=== PATIENT | female | born 1950 | race Caucasian/White ===

== ENCOUNTER → 2017-09-03 | Outpatient (CLI) | payer MEDICARE, OTHER ==
[~2017-09-03] MED LIST: AMOX500C2 PO; OXYC-529 PO
--- NOTE | 2017-09-03 09:14 | Diagnostic Imaging Report ---
INDICATION: Pain. COMPARISON: None. FINDINGS: Two views of the left hip are obtained. No acute fracture or osseous destructive process is seen. There is mild hip joint space narrowing. Femoral head appears smooth and round. The sacroiliac joint appears unremarkable. IMPRESSION: Mild degenerative joint space narrowing of the left hip. No additional abnormality is seen. Dictated by: Dictated on workstation # [id number]
== END ==
LOC: RAD 08:06
PROVIDERS: ATTEND Nurse Practitioner Family
DX: M25.852 Other specified joint disorders, left hip (principal)
CPT/HCPCS: 73502

== ENCOUNTER → 2020-11-26 | Outpatient (CLI) | payer MEDICARE, OTHER ==
[~2020-11-26] MED LIST changes: +OXC5T PO; -OXYC-529 PO
--- NOTE | 2020-11-26 16:09 | Diagnostic Imaging Report ---
PROCEDURE: MRI left joint lower extremity without contrast. TECHNIQUE: Multiplanar, multisequence non contrast-enhanced MRI of the left lower extremity was accomplished. INDICATION: Left femur pain. COMPARISON: There are no prior MRI examinations available for comparison. The plain film examination of the left hip performed on 11/04/2016 failed to show any sign of an acute bony abnormality. FINDINGS: This study is less than optimal due to motion artifact. The T1 coronal series shows a poorly defined 1.4 x 3.4 cm area of diminished signal along the superior articular surface of the femoral head on the left. There is also abnormal signal in the subarticular region of the acetabulum in this region. I suspect that these findings are related to either degenerative disease alone or a combination of degenerative disease and avascular necrosis of the left femoral head. If there is a recent plain film exam, it would be helpful for comparison. There is no other abnormal signal arising from the osseous structures to indicate bone edema or fracture. There is a small joint effusion on the left. There is moderate degenerative disease of the right hip joint and the sacroiliac joints. There is a small area of altered signal along the inferior margin of the sacrum on the right. This is of uncertain etiology. This could be related to an area of sclerosis. It would be less likely that this is secondary to an acute bony injury or a neoplastic disease. A plain film examination of the pelvis would be recommended for further evaluation. There is no pelvic mass or free fluid collection identified. The urinary bladder is grossly unremarkable. The uterus does not appear to be enlarged. IMPRESSION: 1. There is a prominent area of abnormal signal involving the left femoral head, the opposing surfaces of the left acetabulum, and the left hip joint itself. These findings may be secondary to severe degenerative disease alone. The possibility that there is an element of avascular necrosis involving the femoral head should also be considered. 2. There is no acute bony abnormality appreciated otherwise. 3. The small area of altered signal in the right sacrum is of uncertain etiology. Considerations and recommendations as above. Dictated by: Dictated on workstation # [id number]
== END ==
LOC: RAD 14:25
DX: M25.552 Pain in left hip (principal)
CPT/HCPCS: 73721

== ENCOUNTER → 2020-11-29 | Outpatient (CLI) | payer MEDICARE, OTHER ==
--- NOTE | 2020-11-29 11:00 | Diagnostic Imaging Report ---
INDICATION: Left hip pain. Time of exam: 10:25 AM AP view of the pelvis as well as 2 views of each hip were obtained. Femoral acetabular alignment is normal bilaterally. There are severe osteoarthritic changes involving the left hip. There is complete loss of the superior joint space. There is sclerosis and subchondral cyst formation along the articular surfaces of the acetabulum and femoral head. There appears to be slight flattening of the femoral head. No fracture is seen. There is a lucency through the medial aspect of the left superior pubic ramus extending into the pubic body. Suggestive of a fracture. Right-sided rami are intact. IMPRESSION: 1. Severe osteoarthritic changes involving the left hip, as described. 2. Findings suggestive of a fracture involving the left pubic body and superior pubic ramus. Dictated by: Dictated on workstation # [id number]
== END ==
LOC: RAD 10:01
DX: M16.12 Unilateral primary osteoarthritis, left hip (principal)
CPT/HCPCS: 73523

== ENCOUNTER → 2021-07-17 | Outpatient (CLI) | payer MEDICARE, OTHER ==
--- NOTE | 2021-07-17 21:28 | Diagnostic Imaging Report ---
EXAMINATION: Magnetic resonance imaging of the pelvis and left hip without contrast DATE: July 17, 2021. COMPARISON: MRI November 26, 2020. Radiographs November 29, 2020. INDICATION: 71-year-old female, left hip pain. TECHNIQUE: Magnetic Resonance Imaging sequences were performed of the pelvis and left hip without contrast. TENDONS AND MUSCLES: The gluteus alfredito muscles and their origins and insertions are intact bilaterally. The tendons and muscles of the greater trochanter - gluteus minimus, piriformis and gluteus medius - are intact bilaterally. Both common hamstring attachments on the ischial tuberosities are intact and the extensor muscles of the thigh are intact. The visualized portions of the flexors and adductor muscles of the thigh and their attachments on the pelvis and hips are intact. Both iliopsoas and iliacus muscles are intact. The bilateral iliopsoas tendons are intact. HIPS AND SACROILIAC JOINTS: There is severe joint space loss of the left hip with [id number] articulation. There are prominent subchondral cysts in the femoral head and acetabulum. There is abnormal remodeling and a dysmorphic appearance of the left femoral head. There are prominent osteophytes arising from the femoral head. There is no large hip joint effusion. The right hip joint space appears well preserved. The sacroiliac joints are unremarkable. LUMBAR SPINE: The visible portions of the lumbar spine are unremarkable on limited assessment. BONE: The bones all have normal configuration. There is no acute fracture, bone contusion or evidence of osteonecrosis. BURSAE AND SOFT TISSUES: There is a left-sided Bartholin's gland cyst measuring approximately 1.4 cm in size. IMPRESSION: 1. End-stage arthritis of the left hip without large hip joint effusion. 2. Intact muscles and tendons. 3. No acute fracture, bone contusion or evidence of osteonecrosis. Dictated by: Dictated on workstation # [id number]
== END ==
LOC: RAD 13:15
DX: M16.12 Unilateral primary osteoarthritis, left hip (principal)
CPT/HCPCS: 73721

== ENCOUNTER 2023-08-03 22:41 | Emergency (ER) | payer MEDICARE, OTHER ==
[~2023-08-03] VITALS: Ht 165 cm; Wt 56.0 kg
[2023-08-03 22:48] VITALS: BP 191/96
[2023-08-03] MEDS ORDERED: HYDR-700 PO (23:26)
--- NOTE | 2023-08-03 23:26 | ED General ---
General Chief Complaint: Allergic Reaction Stated Complaint: [facility] Nursing Triage Note: PT C/O RASH THAT STARTED ON LOWER BACK AND REPORT IT'S GETTING WORSE/ PT WENT TO PCP AND GOT A STEROID, NO RELIEF YET. Source of Information: Patient Exam Limitations: No Limitations History of Present Illness Date Seen by Provider: Aug 03, 2023 Time Seen by Provider: 22:50 Initial Comments Here with rash to her back and arms that is itching significantly. Patient was prescribed Medrol Dosepak and started that today. She was told the itching would resolve after the first dosing but it has not and she is stating that it is really intense. She does have history of psoriasis. She does get infusions for that. She is due to get infusion and see her doctor tomorrow. Denies recent illness or bacterial infection. Denies change in soaps, lotions, creams, foods or other topical agents that would cause rash. She thought that she probably had hives. She does report allergy to Benadryl but can take hydroxyzine. She has the 50 mg dose at home but it makes her very drowsy. She has not taken anything for pain as acetaminophen also causes allergy. Timing/Duration: 3-4 Days Severity: Moderate Associated Systoms: No Fever/Chills, No Nausea/Vomiting Allergies and Home Medications Allergies Coded Allergies: acetaminophen (Verified Allergy, Unknown, 10/20/15) Patient Home Medication List Home Medication List Reviewed: Yes Amoxicillin (Amoxicillin) 500 Mg Capsule, 1 EACH PO QID Prescribed by: NADINE CESPEDES on 01/14/14 1212 Hydroxyzine HCl (Hydroxyzine HCl) 25 Mg Tablet, 25 MG PO TID PRN for ITCHING Prescribed by: RENÉ CUENCA on 08/03/23 2326 Oxycodone Hcl (Oxyir Tablet) 5 Mg Tablet, 5 MG PO Q4H Prescribed by: RENÉ CUENCA on 10/21/15 0012 Review of Systems Review of Systems Constitutional: see HPI; No fever EENTM: No nose congestion, No throat pain Respiratory: No cough, No short of breath Cardiovascular: no symptoms reported Gastrointestinal: no symptoms reported Skin: see HPI, change in color, lesions, pruritus, rash Psychiatric/Neurological: Anxiety Past Ajkwaxp-Frliiw-Ayxhfp Hx Patient Social History Tobacco Use?: No Use of E-Cig and/or Vaping dev: No Substance use?: No Alcohol Use?: No Immunizations Up To Date Influenza Vaccine Up-to-Date: Yes; Up-to-Date Past Medical History Psychosocial: Yes Anxiety Integumentary: Yes Pruritis, Psoriasis Family Medical History No Pertinent Family Hx Physical Exam Vital Signs Vital Signs - First Documented 08/03/23 22:48 Temp 36.4 Pulse 107 Resp 18 B/P (MAP) 191/96 (127) Pulse Ox 99 O2 Delivery Room Air Capillary Refill : Less Than 3 Seconds Height, Weight, BMI Height: 5'7" Weight: 125lbs. oz. [id number]; 20.00 BMI Method:Stated General Appearance: WD/WN, Anxious HEENT: PERRL/EOMI, Pharynx Normal Respiratory: Lungs Clear, Normal Breath Sounds Cardiovascular: Regular Rate, Rhythm, No Murmur Neurologic/Psychiatric: Alert, Oriented x3 Skin: Warm/Dry, Rash (Small half centimeter lesions noted in multiple areas on her low and mid back as well as her forearms. She has some higher on her shoulders as well. This is more consistent with rash than hives and patient reports that they are intensely itchy. There are no pustules or blisters forming. They all appear to be in the same stage.) Progress/Results/Core Measures Suspected Sepsis SIRS Temperature: Pulse: 107 Respiratory Rate: 18 Blood Pressure 191 /96 Mean: 127 Results/Orders My Orders Orders - RENÉ CUENCA MD Hydroxyzine Oral (Hydroxyzine Oral) (08/03/23 23:30) Vital Signs/I&O 08/03/23 22:48 Temp 36.4 Pulse 107 Resp 18 B/P (MAP) 191/96 (127) Pulse Ox 99 O2 Delivery Room Air Capillary Refill : Less Than 3 Seconds Blood Pressure Mean: 127 Progress Note : Progress Note Seen and evaluated. Patient initially had quite high blood pressure in the range of 190 systolic but improved to 160/85 through the visit. She also reports that the itching is actually now starting to decrease. We did discuss several options. We cannot use Benadryl as she reports allergy to that but she can take hydroxyzine and she has at home but there are the 50 mg tablets and she says that makes her drowsy. I am uncomfortable with that dosing range for her but 25 mg seems reasonable. We did talk about that and we will give her a dose before she goes home. She will go directly home. She will also try ibuprofen at home. She does have appointment tomorrow and she will keep that. Overall we decided to do a small prescription of the lower dose hydroxyzine and she will follow-up with her doctor tomorrow and continue the Medrol Dosepak as prescribed. Discharged home with return precautions. Patient verbalized understanding instructions and agreement with plan. Departure Impression Primary Impression: Pruritus Additional Impression: Atopic dermatitis in adult Disposition: HOME, SELF-CARE Condition: Stable Departure-Patient Inst. Decision time for Depature: 23:24 Referrals: JE PALACIO MD (PCP/Family) Primary Care Physician Patient Instructions: Skin Rash (DC), Itchy Skin Add. Discharge Instructions: All discharge instructions reviewed with patient and/or family. Voiced understanding. You may use the hydroxyzine 25 mg tablets prescribed but be careful as this may cause drowsiness. Do not drive or perform activities that require good motor skills or sharp thinking while taking this medicine. Continue the steroids that are prescribed as prescribed. Follow-up with your doctor tomorrow as scheduled. Return for worse pain, fever, bleeding, foul-smelling drainage, increasing redness or other concerns as needed. Scripts Hydroxyzine HCl (Hydroxyzine HCl) 25 Mg Tablet 25 MG PO TID PRN for ITCHING, #12 TAB 0 Refills Prov: RENÉ CUENCA MD 08/03/23 RENÉ CUENCA MD Aug 03, 2023 23:26
[2023-08-03] MEDS ORDERED: hydrOXYzine 25 MG CAPSULE PO ONE (23:30)
== END 2023-08-03 23:38 | disposition home or self-care (01) ==
LOC: EDUNIT# 22:41 → ER 22:43
DX: L20.9 Atopic dermatitis, unspecified (principal)
CPT/HCPCS: 99283